=== PATIENT | male | born 1965 | race Caucasian/White ===

== ENCOUNTER → 2022-07-21 | Outpatient (CLI) | payer MEDICAID, SELFPAY ==
--- NOTE | 2022-07-21 07:48 | AAVD_ITS ---
Reason For Study: AAA Aorta Measurements Aorta Doppler Measurements Proximal aorta measures1.93cm x 2.01cm. in cross- Peak systolic flow velocities within the proximal sectional axis. aorta measure 116 cm/sec. Proximal aorta measures1.79cm. in longitudinal Peak systolic flow velocities within the mid aorta axis. measure 89 cm/sec. Mid aorta measures2.09cm x 2.16cm. in cross- Peak systolic flow velocities within the distal sectional axis. aorta measure 43 cm/sec. Mid aorta measures1.93cm. in longitudinal axis. Distal aorta measures3.98cm x 4.37cm. in cross- sectional axis. Distal aorta measures3.96cm. in longitudinal axis. Left Iliac Artery Left iliac artery measures 1.06cm x 1.09 cm. in the cross-sectional axis. Left iliac artery measures 0.94 cm. in the longitudinal axis. Peak systolic velocity in the left iliac artery measures 65 cm/sec. Right Iliac Artery Right iliac artery measures 1.64cm x 1.70 cm. in the cross-sectional axis. Right iliac artery measures 1.68 cm. in the longitudinal axis. Peak systolic velocity in the right iliac artery measures 81 cm/sec. Procedure Aorta IVC Iliac vasculature or bypass grafts 42066. Exam performed in department. VL/Abd Aortic/IVC Duplex scan Interpretation Summary Distal aortic aneurysm 3.98 x 4.37cm. Ordering Physician: Robin Plummer Referring Physician: Tito Martinez Performed By: Sammi Jordan, BONY, RVT
--- NOTE | 2022-07-21 07:49 | ADUL_ITS ---
Reason For Study: AAA Right Velocities Ext. Iliac Artery, dist = 98 cm./sec. Common Femoral Artery, dist = 110 cm./sec. Supf Femoral Artery, prox = 54 cm./sec. Rt SFA mid pre-stenosis: 46cm/s Rt SFA mid stenosis: 371cm/s Rt SFA mid post-stenosis: 137cm/s. Supf Femoral Artery, dist. = 37 cm./sec. Profunda Femoral Artery = 98 cm./sec. Popliteal Artery, mid = 21 cm./sec. Post. Tibial Artery, prox = 32 cm./sec. Post. Tibial Artery, mid = 33 cm./sec. Post. Tibial Artery, dist = 32 cm./sec. Peroneal Artery, prox = 28 cm./sec. Peroneal Artery, mid = 17 cm./sec. Peroneal Artery,dist = 18 cm./sec. Ant. Tibial Artery, prox = 22 cm./sec. Ant. Tibial Artery, mid = 19 cm./sec. Ant. Tibial Artery, dist = 21 cm./sec. Procedure Exam performed in department. /US Art Duplex Unilat Lower Ext Interpretation Summary Right mid femoral with severe stenosis. Ordering Physician: Robin Plummer Referring Physician: Tito Martinez Performed By: Sammi Jordan, BONY, RVT
--- NOTE | 2022-07-21 07:49 | ART_ITS ---
Reason For Study: AAA Procedure A bilateral lower extremity continuous wave Doppler with analog waveform analysis and ankle brachial indexes. Left Segmental Pressures Left brachial= 99mmHg. Left posterior tibial artery = 91mmHg. Left dorsalis pedis artery = 80mmHg. Right Segmental Pressures Right brachial= 100mmHg. Right posterior tibial artery = 88mmHg. Right dorsalis pedis artery = 95mmHg. Indices The right ankle brachial index by the posterior tibial artery is 0.88. The right ankle brachial index by the dorsalis pedis is 0.95. The left ankle brachial index by the posterior tibial artery is 0.91. The left ankle brachial index by the dorsalis pedis is 0.80. VL/Ankle Brachial Index Interpretation Summary No significant disease with REY right 0.95 and biphasic and elft 0.91 and triph asic. Ordering Physician: Robin Plummer Referring Physician: Tito Martinez Performed By: Sammi Jordan RDCS/RVT
== END | disposition home or self-care (01) ==
LOC: CVS 07:47
PROVIDERS: PCP Preventive Medicine Occupational Medicine; Referring Provider Surgery Vascular Surgery; Visit Provider Surgery Vascular Surgery
DX: I70.213 Atherosclerosis of native arteries of extremities with intermittent claudication, bilateral legs (principal); I71.43 Infrarenal abdominal aortic aneurysm, without rupture; I77.1 Stricture of artery
CPT/HCPCS: 93922; 93926; 93978